=== PATIENT | female | born 2000 | race Caucasian/White ===

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

== ENCOUNTER 2021-09-03 17:45 | Emergency (ER) | payer OTHER ==
[2021-09-03] MEDS ORDERED: Rocephin 1000 MG INJ IM ONE (17:56)
[2021-09-03] MEDS ORDERED: TORAdol 30 mg Injection IM ONE (17:56)
[2021-09-03] MEDS ORDERED: Rocephin 1000 MG INJ ONE (17:59)
[2021-09-03] MEDS ORDERED: TORAdol 30 mg Injection ONE (17:59)
[2021-09-03] MEDS ORDERED: XYLOCAINE 1% HCL 20 ML MDV ONE (17:59)
--- NOTE | 2021-09-03 18:00 | ERPHSYRPT ---
- History of Present Illness Time Seen by Provider: 09/03/21 17:57 Source: patient Exam Limitations: no limitations Patient Subjective Stated Complaint: pt reports dental abscess to right lower molar, reports pain and swelling starting today. Triage Nursing Assessment: pt is aox3, pupils perrl, afebrile, resps easy and non labored, cap refill < 3 seconds, radial pulses strong and equal, pt skin pink warm dry. pt with mild swelling to the gum distal to the right lower first molar. no drainage noted. Physician History: pt reports dental abscess to right lower molar, reports pain and swelling starting today. Timing/Duration: abrupt onset Severity: moderate ENT Location: dental Prearrival Treatment: no prearrival treatment Associated Symptoms: denies symptoms Allergies/Adverse Reactions: tramadol Allergy (Verified 09/03/21 17:56) Hx Tetanus, Diphtheria Vaccination/Date Given: Yes Hx Influenza Vaccination/Date Given: No Hx Pneumococcal Vaccination/Date Given: No Immunizations Up to Date: Yes Travel Risk - International Travel Have you traveled outside of the country in past 3 weeks: No - Coronavirus Screening Are you exhibiting any of the following symptoms?: No Close contact with a COVID-19 positive Pt in past 14-21 Days: No - Vaccine Status Have you recieved a Covid-19 vaccination: No - Review of Systems Constitutional: No Symptoms Eyes: No Symptoms Ears, Nose, & Throat: Loose Teeth Respiratory: No Symptoms Cardiac: No Symptoms Abdominal/Gastrointestinal: No Symptoms Genitourinary Symptoms: No Symptoms Musculoskeletal: No Symptoms - Past Medical History Pertinent Past Medical History: No Neurological History: No Pertinent History ENT History: No Pertinent History Cardiac History: No Pertinent History Respiratory History: No Pertinent History Endocrine Medical History: No Pertinent History Musculoskeletal History: No Pertinent History GI Medical History: No Pertinent History History: No Pertinent History Psycho-Social History: No Pertinent History Female Reproductive Disorders: No Pertinent History - Past Surgical History Past Surgical History: Yes Neuro Surgical History: No Pertinent History Cardiac: No Pertinent History Respiratory: No Pertinent History Gastrointestinal: No Pertinent History Genitourinary: No Pertinent History Musculoskeletal: No Pertinent History Female Surgical History: No Pertinent History - Social History Smoking Status: Current every day smoker Exposure to second hand smoke: Yes Drug Use: none Patient Lives Alone: No - Female History Hx Now: No - Nursing Vital Signs Nursing Vital Signs: Initial Vital Signs Temperature 97.2 F 09/03/21 17:48 Pulse Rate 62 09/03/21 17:48 Respiratory Rate 18 09/03/21 17:48 Blood Pressure 138/71 09/03/21 17:48 O2 Sat by Pulse Oximetry 100 09/03/21 17:48 Pain Scale Pain Intensity 8 - Physical Exam General Appearance: no apparent distress Eye Exam: bilateral eye: normal inspection Ear Exam: bilateral ear: auricle normal, TM normal Nasal Exam: normal inspection Throat Exam: dental tenderness, moist mucus membranes Neck Exam: normal inspection Cardiovascular/Respiratory Exam: chest non-tender Abdominal Exam: non-tender Neurologic Exam: alert SpO2 Interpretation: normal SpO2: 100 O2 Delivery: Room Air - Course Nursing assessment & vital signs reviewed: Yes Ordered Tests: Medication Summary Generic Name Dose Route Start Last Admin Trade Name Freabimael PRN Reason Stop Dose Admin Ceftriaxone Sodium 1,000 mg 09/03/21 17:56 Ceftriaxone Sodium 1000 Mg Inj Vial IM 09/03/21 17:57 STAT ONE Ketorolac Tromethamine 60 mg 09/03/21 17:56 Ketorolac Tromethamine 30 Mg/Ml Inj IM 09/03/21 17:57 STAT ONE - Progress Progress: improved, pain not gone completely Counseled pt/family regarding: diagnosis, need for follow-up (with Dentist) - Departure Departure Disposition: Home Clinical Impression: Dental caries Condition: Stable Critical Care Time: No Referrals: DOCTOR,NO FAMILY [Primary Care Provider] - Follow up/PCP as directed (follow up with Dentist) Instructions: Tooth Abscess (DC) Additional Instructions: Discharge/Care Plan AXEL DE LA GARZA was seen on 09/03/21 in the Emergency Room. The patient was counseled regarding Diagnosis,Lab results, Imaging studies, need for follow up and when to return to the Emergency Room. Prescriptions given: Discharge Note I have spoken with the patient and/or caregivers. I have explained the patient's condition, diagnosis and treatment plan based on the information available to me at this time. I have answered the patient's and/or caregiver's questions and addressed any concerns. The patient and/or caregivers have as good understanding of the patient's diagnosis, condition and treatment plan as can be expected at this point. The vital signs have been stable. The patient's condition is stable and appropriate for discharge from the emergency department. The patient will pursue further outpatient evaluation with the primary care physician or other designated or consulting physician as outlined in the gavi rosen instructions. The patient and/or caregivers are agreeable to this plan of care and follow-up instructions have been explained in detail. The patient and/or caregivers have received these instruction. The patient/and or caregivers are aware that any significant change in condition or worsening of symptoms should prompt an immediate return to this or the closest emergency department or call 911. AXEL DE LA GARZA was seen on 09/03/21 n the Emergency Room. At that time you were treated for an emergent condition, during your visit Laboratory, Radiology and/or other procedures may have been ordered. It is very important that you follow-up with your Primary Care Physician NO FAMILY DOCTOR within the next 24- 48 hours to review your Emergency Room visit and the final results of testing that was ordered. Some test results such as Urine Cultures, Blood Cultures, and other cultures if ordered will not be finalized for 24-48 hours. If you do not have a Primary Care Provider please call the medical records department at [phone] ext [phone] to obtain a copy of your results or you may sign into our patient portal to obtain these results by visiting us @ [email or web address] and completing the following steps: 1. Click on the Patient Portal link 2. Click the Patient Self Enrollment Link to complete the enrollment form and entering your 3. Once the enrollment form is completed you will receive an email with a temporary ID and password at the email address you provided. 4. Next choose a user name and password. Your user name must be at least 4 characters long and your password must be at least 4 characters long. 5. Choose a security question from the list and provide your answer to the question. If you already have signed into the Health Portal you may access your Health Care Information 11/02 by the following steps: 1. Login to our website @ [email or web address] 2. Enter your original user name and password. FAQS The [facility] Portal is an online tool that contains your Lab Results, Radiology Reports, Visit History, Discharge Instructions and Health Summary Lab and Radiology Results will not be available for 72 hours on the portal. The Portal is a secure site, passwords are encryted and URLs are re-written so they cannot be copied and pasted. You and authorized family members are the only ones who can access your Portal. Also there is a timeout feature that protects your information if you leave the Portal page open. If you have technical difficulty please use the Contact Us link on the page this will allow you to submit any questions you have regarding the Portal or you may contact the Medical Record Department at [phone] ext [phone]. Prescriptions: Amoxicillin [Moxatag] 775 mg PO BID #20 tab
[2021-09-03 18:35] VITALS: BP 120/76; PULSE 70; O2SAT 99
== END 2021-09-03 18:35 | disposition home or self-care (01) ==
LOC: ED 17:45
DX: K02.9 Dental caries, unspecified (principal); K04.7 Periapical abscess without sinus; Z72.0 Tobacco use
CPT/HCPCS: 96372; 99284; J0696; J1885

== ENCOUNTER 2021-12-08 18:58 | Emergency (ER) | payer OTHER ==
--- NOTE | 2021-12-08 19:36 | ERPHSYRPT ---
- History of Present Illness Time Seen by Provider: 12/08/21 19:35 Historian: patient Exam Limitations: no limitations Patient Subjective Stated Complaint: Pt states "Since yesterday before work I have been throwing up." Triage Nursing Assessment: Pt c/o vomiting since yesterday around 1300, pt has vomiting a total of 2 times today, pt denies abd pain or nausea at this time, pt is afebrile, pt able to eat today and keep food down Timing/Duration: yesterday Activities at Onset: none Quality: cramping Abdominal Pain Onset Location: epigastric Pain Radiation: no radiation Severity of Pain-Max: mild Severity of Pain-Current: none Modifying Factors: Improves With: nothing Associated Symptoms: denies symptoms Previous symptoms: no prior history Allergies/Adverse Reactions: tramadol Allergy (Mild, Verified 12/08/21 19:10) Home Medications: Naproxen 375 mg [Naprosyn 375 mg] 375 mg PO PRN 12/08/21 [History] Hx Tetanus, Diphtheria Vaccination/Date Given: Yes Hx Influenza Vaccination/Date Given: No Hx Pneumococcal Vaccination/Date Given: No Immunizations Up to Date: Yes Travel Risk - International Travel Have you traveled outside of the country in past 3 weeks: No - Coronavirus Screening Are you exhibiting any of the following symptoms?: No Close contact with a COVID-19 positive Pt in past 14-21 Days: No - Vaccine Status Have you recieved a Covid-19 vaccination: No - Review of Systems Constitutional: No Symptoms Eyes: No Symptoms Ears, Nose, & Throat: No Symptoms Respiratory: No Symptoms Cardiac: No Symptoms Abdominal/Gastrointestinal: Nausea, Vomiting Genitourinary Symptoms: No Symptoms Musculoskeletal: No Symptoms Skin: No Symptoms Neurological: No Symptoms Psychological: No Symptoms Endocrine: No Symptoms Hematologic/Lymphatic: No Symptoms Immunological/Allergic: No Symptoms All Other Systems: Reviewed and Negative - Past Medical History Pertinent Past Medical History: No Neurological History: No Pertinent History ENT History: No Pertinent History Cardiac History: No Pertinent History Respiratory History: No Pertinent History Endocrine Medical History: No Pertinent History Musculoskeletal History: No Pertinent History GI Medical History: No Pertinent History History: No Pertinent History Psycho-Social History: No Pertinent History Female Reproductive Disorders: No Pertinent History - Past Surgical History Past Surgical History: Yes Neuro Surgical History: No Pertinent History Cardiac: No Pertinent History Respiratory: No Pertinent History Gastrointestinal: No Pertinent History Genitourinary: No Pertinent History Musculoskeletal: No Pertinent History Female Surgical History: No Pertinent History - Social History Smoking Status: Current every day smoker Exposure to second hand smoke: Yes Drug Use: none Patient Lives Alone: No - Female History Hx Last Menstrual Period: one month ago Hx Now: No - Nursing Vital Signs Nursing Vital Signs: Initial Vital Signs Temperature 99.0 F 12/08/21 19:10 Pulse Rate 101 H 12/08/21 19:10 Respiratory Rate 16 12/08/21 19:10 Blood Pressure 174/71 12/08/21 19:10 O2 Sat by Pulse Oximetry 99 12/08/21 19:10 Pain Scale Pain Intensity 0 - Physical Exam General Appearance: no apparent distress Eye Exam: PERRL/EOMI Ears, Nose, Throat Exam: normal ENT inspection Neck Exam: normal inspection Respiratory Exam: normal breath sounds Cardiovascular Exam: regular rate/rhythm Gastrointestinal/Abdomen Exam: soft Pelvic Exam: not done Rectal Exam: not done Back Exam: normal inspection Extremity Exam: normal inspection Neurologic Exam: alert, oriented x 3 Skin Exam: normal color, warm SpO2 Interpretation: normal SpO2: 99 O2 Delivery: Room Air - Course Nursing assessment & vital signs reviewed: Yes Ordered Tests: Active Orders 24 hr Category Date Time Status IV Insertion STAT Care 12/08/21 19:17 Completed Medication Summary Discontinued Medications Generic Name Dose Route Start Last Admin Trade Name Michael PRN Reason Stop Dose Admin Ondansetron HCl 4 mg 12/08/21 20:01 12/08/21 20:04 Ondansetron Hcl 4 Mg/2 Ml Vial IV 12/08/21 20:02 4 mg STAT ONE Administration Ondansetron HCl Confirm 12/08/21 20:04 Ondansetron Hcl 4 Mg/2 Ml Vial Administered 12/08/21 20:05 Dose 4 mg .ROUTE .STK-MED ONE - Progress Progress: improved Progress Note: 12/09/21 06:15 she did not want any tests, just work note, she looks well, Rx zofran, note Counseled pt/family regarding: diagnosis - Departure Departure Disposition: Home Clinical Impression: Nausea & vomiting Qualifiers: Vomiting type: unspecified Qualified Code(s): R11.2 - Nausea with vomiting, unspecified Condition: Stable Critical Care Time: No Referrals: DOCTOR,NO FAMILY [Primary Care Provider] - Follow up/PCP as directed Additional Instructions: Advance diet as tolerated, recheck as needed. Forms: Work/School Release Form Prescriptions: Ondansetron ODT 4 MG [Zofran Odt 4 mg] 4 mg PO Q6HPRN PRN #10 tab PRN Reason: Nausea
[2021-12-08] MEDS ORDERED: Zofran 4 MG/2 ML VIAL IV ONE (20:01)
[2021-12-08] MEDS ORDERED: Zofran 4 MG/2 ML VIAL ONE (20:04)
[2021-12-08 20:49] VITALS: BP 109/58; PULSE 77
[2021-12-09 06:15] VITALS: O2SAT 99
== END 2021-12-08 20:52 | disposition home or self-care (01) ==
LOC: ED 18:58
DX: R11.2 Nausea with vomiting, unspecified (principal); Z72.0 Tobacco use
CPT/HCPCS: 36000; 96374; 99284; J2405

== ENCOUNTER 2022-10-18 07:14 | Emergency (ER) | payer OTHER ==
[2022-10-18 07:29] VITALS: O2SAT 98
[2022-10-18] MEDS ORDERED: Adacel Vial IM ONE ×2 (08:02→08:13)
[2022-10-18] MEDS ORDERED: XYLOCAINE 1% HCL 20 ML MDV IJ ONE (08:08)
--- NOTE | 2022-10-18 08:09 | ERPHSYRPT ---
- History of Present Illness Source: patient Exam Limitations: no limitations Patient Subjective Stated Complaint: PT states "I was cooking last night and I cut my arm with a serratted knive. We tried to clean it last night but it needs more." Triage Nursing Assessment: Pt presented alert and oriented X 3, skin pwd. Pt ambulates with an upright steady gait, able to speak in clear full sentences pt in no apparent respiratory distress. PT has two lacerations noted to her left wirst. Physician History: 22 yo WF w L dorsal hand laceration x2. Pt stated that lacerations occurred at 21:00 last night while working in the kitchen. Pt is L handed and needs a Tdap. Occurred: other (21:00 last night) Method of Injury: incised Severity of Pain-Max: moderate Severity of Pain-Current: mild Extremities Pain Location: hand: left Modifying Factors: Improves With: movement Associated Symptoms: none Allergies/Adverse Reactions: tramadol Allergy (Mild, Verified 12/08/21 19:10) Hx Tetanus, Diphtheria Vaccination/Date Given: No Hx Influenza Vaccination/Date Given: No Hx Pneumococcal Vaccination/Date Given: No Immunizations Up to Date: Yes Travel Risk - International Travel Have you traveled outside of the country in past 3 weeks: No - Coronavirus Screening Are you exhibiting any of the following symptoms?: No Close contact with a COVID-19 positive Pt in past 14-21 Days: No - Vaccine Status Have you recieved a Covid-19 vaccination: No - Review of Systems Constitutional: No Symptoms Eyes: No Symptoms Ears, Nose, & Throat: No Symptoms Respiratory: No Symptoms Cardiac: No Symptoms Abdominal/Gastrointestinal: No Symptoms Genitourinary Symptoms: No Symptoms Skin: No Symptoms Neurological: No Symptoms Psychological: No Symptoms Endocrine: No Symptoms Hematologic/Lymphatic: No Symptoms Immunological/Allergic: No Symptoms - Past Medical History Pertinent Past Medical History: No Neurological History: No Pertinent History ENT History: No Pertinent History Cardiac History: No Pertinent History Respiratory History: No Pertinent History Endocrine Medical History: No Pertinent History Musculoskeletal History: No Pertinent History GI Medical History: No Pertinent History History: No Pertinent History Psycho-Social History: No Pertinent History Female Reproductive Disorders: No Pertinent History - Past Surgical History Past Surgical History: Yes Neuro Surgical History: No Pertinent History Cardiac: No Pertinent History Respiratory: No Pertinent History Gastrointestinal: No Pertinent History Genitourinary: No Pertinent History Musculoskeletal: No Pertinent History Female Surgical History: No Pertinent History - Social History Smoking Status: Current every day smoker How long have you smoked: years Exposure to second hand smoke: Yes Drug Use: none Patient Lives Alone: No - Female History Hx Last Menstrual Period: 09/10/2022 Hx Now: No - Nursing Vital Signs Nursing Vital Signs: Initial Vital Signs Temperature 98.4 F 10/18/22 07:23 Pulse Rate 110 H 10/18/22 07:23 Respiratory Rate 20 10/18/22 07:23 Blood Pressure 137/60 10/18/22 07:23 O2 Sat by Pulse Oximetry 98 10/18/22 07:23 Pain Scale Pain Intensity 5 Tachy/Mildly hypertensive - Physical Exam General Appearance: no apparent distress Eyes, Ears, Nose, Throat Exam: normal ENT inspection, TMs normal, pharynx normal, moist mucous membranes Neck Exam: normal inspection, non-tender, supple, full range of motion, No Brudzinski, No Kernig's, No meningismus Cardiovascular/Respiratory Exam: normal breath sounds, tachycardia Abdominal Exam: non-tender, soft Back Exam: normal inspection, normal range of motion Shoulder Exam: normal inspection, non-tender, no evidence of injury Elbow/Forearm Exam: normal inspection, non-tender, no evidence of injury, normal ROM Wrist Exam: normal inspection, non-tender, no evidence of injury Hand Exam: laceration (4cm laceration dorsal aspect of L hand at base of 1st digit/Also 1cm laceration just distal to the larger laceration/Good hemostasis/good distal capillary return and sensation) DTR - Upper Extremity Exam: bicep (R): 2+, bicep (L): 2+ Neuro/Tendon Exam: normal sensation, normal motor functions, normal tendon functions, responds to pain, no evidence tendon injury, No motor deficit, No sensory deficit Mental Status Exam: alert, oriented x 3, cooperative Skin Exam: normal color, warm, dry SpO2 Interpretation: normal SpO2: 98 O2 Delivery: Room Air Procedures - Laceration/Wound Repair Left Dorsal Hand Time of Procedure: 08:05 Wound Location: Left Wound Length (cm): 4 Wound's Depth, Shape: linear Wound Explored: clean Irrigated: Yes Hibiclens Prep: Yes Anesthesia: local, 1% Lidocaine Volume Anesthetic (ccs): 5 Wound Debrided: minimal Wound Repaired With: sutures Suture Size/Type: 3-0 (3.0 Ethilon x7) Number of Sutures: 7 Layer Closure?: No Sterile Dressing Applied?: Yes Left Hand Wound Location: Left Wound Length (cm): 1 Wound's Depth, Shape: superficial Wound Explored: clean Irrigated: Yes Hibiclens Prep: Yes Anesthesia: local, 1% Lidocaine Volume Anesthetic (ccs): 2 Wound Repaired With: sutures Suture Size/Type: 3-0 (3.0 Ethilon x1) Layer Closure?: No - Course Nursing assessment & vital signs reviewed: Yes Ordered Tests: Medication Summary Discontinued Medications Generic Name Dose Route Start Last Admin Trade Name Freq PRN Reason Stop Dose Admin Diphtheria/Tetanus/Acell Pertussis 0.5 ml 10/18/22 08:02 10/18/22 08:14 Tdap --Diph,Pertuss(Acell),Tet Vac/Pf 0.5 Ml Vial IM 10/18/22 08:03 0.5 ml .ONCE ONE Administration Diphtheria/Tetanus/Acell Pertussis Confirm 10/18/22 08:13 Tdap --Diph,Pertuss(Acell),Tet Vac/Pf 0.5 Ml Vial Administered 10/18/22 08:14 Dose 0.5 ml IM .STK-MED ONE Lidocaine HCl 5 ml 10/18/22 08:08 10/18/22 08:14 Lidocaine Hcl 1% 20 Ml Mdv 20 Ml Ml IJ 10/18/22 08:09 5 ml STAT ONE Administration - Progress Progress: improved Progress Note: 10/18/22 08:23 Nursing note and vital signs reviewed No food or housing insecurities noted Lacerations irrigated copiously per nursing Lacerations closed due to large tissue defect, possible noncompliance w follow up, and delay in outpt treatment due to pandemic abnormalities Pt advised that she is at greater risk to wound infection due to delayed presentation to ER Counseled pt/family regarding: diagnosis, need for follow-up Medical Desision Making - Independent Historian Additional History obtained from: Spouse - Departure Departure Disposition: Home Clinical Impression: Hand laceration Condition: Stable Critical Care Time: No Referrals: DOCTOR,NO FAMILY [Primary Care Provider] - Follow up/PCP as directed Instructions: Laceration Repair With Stitches (DC) Additional Instructions: Keep laceration dry for 2 days, then wash 1-2 times a day w mild soap/water Watch for signs of infection-increasing redness/any pus/temperature greater than 100.5/increasing pain Start your antibiotic BREANNE Wound is at greater risk for infection due to delayed presentation to ER Prescriptions: Amox Tr/Potass Clav. 875 mg [Augmentin 875-125 Tablet] 1 each PO BID #20 tablet
[2022-10-18 08:47] VITALS: BP 112/66; PULSE 57
== END 2022-10-18 08:59 | disposition home or self-care (01) ==
LOC: ED 07:14
DX: S61.412A Laceration without foreign body of left hand, initial encounter (principal); W26.0XXA Contact with knife, initial encounter; Y93.G1 Activity, food preparation and clean up; Y92.000 Kitchen of unspecified non-institutional (private) residence as the place of occurrence of the external cause; Z28.310 Unvaccinated for COVID-19; Z72.0 Tobacco use
CPT/HCPCS: 12002; 90471; 90715; 96372; 99283

== ENCOUNTER 2022-10-25 19:12 | Emergency (ER) | payer OTHER ==
[2022-10-25 19:36] VITALS: O2SAT 100
--- NOTE | 2022-10-25 19:38 | ERPHSYRPT ---
- History of Present Illness Time Seen by Provider: 10/25/22 19:30 Source: patient Exam Limitations: no limitations Patient Subjective Stated Complaint: pt states she needs sutures out from last week. states she cut her hand while cooking Triage Nursing Assessment: pt alert and oriented, answers questions approp. pt ambulatory with steady gait noted. respirations nonalbored. skin warm and dry. well approx lac 4cm with 7 sutures. lac well approx with 1 suture Physician History: 22-year-old female presents emergency department for suture removal. Patient lacerated her left wrist area 1 week ago. Patient presented to our ED for suture repair. 8 sutures were placed. Patient states her tetanus is up-to-date. She feels well. No complications during the time of healing. Patient here for suture removal. She does not have a primary care doctor to follow-up with. Pain is well controlled. Patient declined additional pain medication. Significant other at bedside. They voiced no other complaints or concerns at this time. Patient's involved extremities neurovascular tact distally. Compartments are soft. Cap refill less than 2 seconds. Portions of this note were created with voice recognition technology. There may be grammatical, spelling, punctuation or sound alike errors Timing/Duration: day(s) (Laceration occurred 1 week ago. Suture removal today) Severity: mild Modifying Factors: Improves With: nothing Associated Symptoms: denies symptoms Allergies/Adverse Reactions: tramadol Allergy (Mild, Verified 10/25/22 19:41) Hx Tetanus, Diphtheria Vaccination/Date Given: Yes Hx Influenza Vaccination/Date Given: No Hx Pneumococcal Vaccination/Date Given: No Immunizations Up to Date: Yes Travel Risk - International Travel Have you traveled outside of the country in past 3 weeks: No - Coronavirus Screening Are you exhibiting any of the following symptoms?: No Close contact with a COVID-19 positive Pt in past 14-21 Days: No - Vaccine Status Have you recieved a Covid-19 vaccination: No - Review of Systems Constitutional: No Symptoms, No Fever, No Chills Eyes: No Symptoms Ears, Nose, & Throat: No Symptoms Respiratory: No Symptoms, No Cough, No Dyspnea Cardiac: No Symptoms, No Chest Pain, No Edema, No Syncope Abdominal/Gastrointestinal: No Symptoms, No Abdominal Pain, No Nausea, No Vomiting, No Diarrhea Genitourinary Symptoms: No Symptoms, No Dysuria Musculoskeletal: No Symptoms, No Back Pain, No Neck Pain Skin: No Symptoms, No Rash Neurological: No Symptoms, No Dizziness, No Focal Weakness, No Sensory Changes Psychological: No Symptoms Endocrine: No Symptoms Hematologic/Lymphatic: No Symptoms Immunological/Allergic: No Symptoms All Other Systems: Reviewed and Negative - Past Medical History Pertinent Past Medical History: No Neurological History: No Pertinent History ENT History: No Pertinent History Cardiac History: No Pertinent History Respiratory History: No Pertinent History Endocrine Medical History: No Pertinent History Musculoskeletal History: No Pertinent History GI Medical History: No Pertinent History History: No Pertinent History Psycho-Social History: No Pertinent History Female Reproductive Disorders: No Pertinent History - Past Surgical History Past Surgical History: Yes Neuro Surgical History: No Pertinent History Cardiac: No Pertinent History Respiratory: No Pertinent History Gastrointestinal: No Pertinent History Genitourinary: No Pertinent History Musculoskeletal: No Pertinent History Female Surgical History: No Pertinent History - Social History Smoking Status: Current every day smoker How long have you smoked: years Exposure to second hand smoke: Yes Drug Use: none Patient Lives Alone: No - Female History Hx Last Menstrual Period: last week Hx Now: No - Nursing Vital Signs Nursing Vital Signs: Initial Vital Signs Temperature 97.8 F 10/25/22 19:18 Pulse Rate 96 H 10/25/22 19:18 Respiratory Rate 16 10/25/22 19:18 Blood Pressure 132/67 10/25/22 19:18 O2 Sat by Pulse Oximetry 100 10/25/22 19:18 Pain Scale Pain Intensity 0 - Physical Exam General Appearance: no apparent distress, alert Eye Exam: PERRL/EOMI, eyes nml inspection Ears, Nose, Throat Exam: normal ENT inspection, pharynx normal, moist mucous membranes Neck Exam: normal inspection, non-tender, full range of motion Respiratory Exam: normal breath sounds, airway intact, No respiratory distress Cardiovascular Exam: regular rate/rhythm, normal peripheral pulses Gastrointestinal/Abdomen Exam: soft, normal bowel sounds, No tenderness, No mass Back Exam: normal inspection, normal range of motion, No CVA tenderness, No vertebral tenderness Extremity Exam: normal inspection, normal range of motion, pelvis stable Neurologic Exam: alert, oriented x 3, cooperative, normal mood/affect, sensation nml, No motor deficits Skin Exam: normal color, warm, dry, No rash Lymphatic Exam: No adenopathy SpO2 Interpretation: normal SpO2: 100 O2 Delivery: Room Air - Course Nursing assessment & vital signs reviewed: Yes - Progress Progress: improved Progress Note: 22-year-old female presents emergency department for suture removal. Sutures w ere removed by RN. Steri-Strips applied. Patient neurovascular intact distally post procedure. Tetanus up-to-date. Pain well controlled. No indication for further work-up. Will discharge home. Patient agrees to follow-up with primary care doctor within 48 hours for reevaluation. Portions of this note were created with voice recognition technology. There may be grammatical, spelling, punctuation or sound alike errors Complexity of problems addressed is straightforward Complex of data reviewed and analyzed is none Risk of complication and or risk of morbidity/mortality is minimal. Patient discharged home. She voices no other complaints or concerns at this time. Patient does not have a primary care doctor. Referral to Dr. Haddad ordered/service Provided to patient. Portions of this note were created with voice recognition technology. There may be grammatical, spelling, punctuation or sound alike errors 10/25/22 19:59 Counseled pt/family regarding: diagnosis, need for follow-up - Departure Departure Disposition: Home Clinical Impression: Visit for suture removal Condition: Stable Critical Care Time: No Referrals: DOCTOR,NO FAMILY [Primary Care Provider] - Follow up/PCP as directed CHRISTIAN HADDAD MD [ACTIVE STAFF] - Follow up/PCP as directed Additional Instructions: Discharge/Care Plan AXEL DE LA GARZA was seen on 10/25/22 in the Emergency Room. The patient was counseled regarding Diagnosis,Lab results, Imaging studies, need for follow up and when to return to the Emergency Room. Prescriptions given: Discharge Note I have spoken with the patient and/or caregivers. I have explained the patient's condition, diagnosis and treatment plan based on the information available to me at this time. I have answered the patient's and/or caregiver's questions and addressed any concerns. The patient and/or caregivers have as good understanding of the patient's diagnosis, condition and treatment plan as can be expected at this point. The vital signs have been stable. The patient's condition is stable and appropriate for discharge from the emergency department. The patient will pursue further outpatient evaluation with the primary care physician or other designated or consulting physician as outlined in the discharge instructions. The patient and/or caregivers are agreeable to this plan of care and follow-up instructions have been explained in detail. The patient and/or caregivers have received these instruction. The patient/and or caregivers are aware that any significant change in condition or worsening of symptoms should prompt an immediate return to this or the closest emergency department or call 911.
[2022-10-25 19:58] VITALS: BP 117/65; PULSE 67
== END 2022-10-25 19:58 | disposition home or self-care (01) ==
LOC: ED 19:12
DX: Z48.02 Encounter for removal of sutures (principal); Z28.310 Unvaccinated for COVID-19; Z72.0 Tobacco use
CPT/HCPCS: 99281